=== PATIENT | female | born 1995 | race Caucasian/White ===

== ENCOUNTER 2018-05-08 08:49 | Emergency (ER) | payer OTHER ==
[2018-05-08 08:52] VITALS: BMI 30.2
[2018-05-08 08:56] VITALS: RESP 18
[2018-05-08] MEDS ORDERED: levoFLOXacin 750 MG TAB PO STA ×2 (08:57→09:36)
--- NOTE | 2018-05-08 09:24 | ED PDOC ---
Arrival/HPI - General Chief Complaint: ENT Problem Time Seen by Provider: 05/08/18 08:57 Historian: Patient - History of Present Illness Narrative History of Present Illness (Text): 05/08/18 09:00 22 year old female, whose past medical history includes pancreatitis, who presents to the Emergency department complaining of sore throat, cough, swollen glands, and fever since she came back from [place] yesterday. Patient states she has been in [place] for the past few days. Sick contact is her mother who is present in the emergency department today for the same symptoms. Patient denies any chest pain, shortness of breath, vomiting, diarrhea, urinary symptoms , back pain, neck pain, headache, dizziness, or any other complaints. PMD: Dr. Almonte Time/Duration: Other (patient notes sx since she got home back from [facility] yesterday) Symptom Onset: Sudden Symptom Course: Unchanged Activities at Onset: Light Context: Home Past Medical History - Provider Review Nursing Documentation Reviewed: Yes - Infectious Disease Hx of Infectious Diseases: None - Reproductive Menopause: No - Psychiatric Hx Substance Use: No - Anesthesia Hx Anesthesia: No Family/Social History - Physician Review Nursing Documentation Reviewed: Yes Family/Social History: No Known Family HX Smoking Status: Unknown If Ever Smoked Hx Alcohol Use: No Hx Substance Use: No Allergies/Home Meds Allergies/Adverse Reactions: Allergies No Known Allergies Allergy (Verified 05/08/18 08:53) Review of Systems - Physician Review All systems were reviewed & negative as marked: Yes - Review of Systems Constitutional: Fevers. absent: Normal Eyes: Normal ENT: Sore Throat, Other (swollen glands). absent: Normal Respiratory: Cough. absent: Normal, SOB Cardiovascular: Normal. absent: Chest Pain Gastrointestinal: Normal. absent: Diarrhea, Nausea, Vomiting Genitourinary Female: Normal Musculoskeletal: Normal. absent: Back Pain, Neck Pain Skin: Normal Neurological: Normal. absent: Headache, Dizziness Endocrine: Normal Hemo/Lymphatic: Normal Psychiatric: Normal Physical Exam Vital Signs Reviewed: Yes Vital Signs Temp Pulse Resp BP Pulse Ox 05/08/18 10:05 102 F H 92 H 18 119/76 98 05/08/18 08:55 103 F H 107 H 18 118/83 99 Temperature: Febrile Blood Pressure: Normal Pulse: Tachycardic Respiratory Rate: Normal Appearance: Positive for: Well-Appearing, Non-Toxic, Comfortable Pain Distress: None Mental Status: Positive for: Alert and Oriented X 3 - Systems Exam Head: Present: Atraumatic, Normocephalic Pupils: Present: PERRL Extroacular Muscles: Present: EOMI Conjunctiva: Present: Normal Mouth: Present: Moist Mucous Membranes Pharnyx: Present: ERYTHEMA (Some redness to posterior pharnyx), Muffled/Hoarse Voice, Other (harsh barky cough. tender cervical lymph nodes.). No: Normal, EXUDATE Neck: Present: Normal Range of Motion Respiratory/Chest: Present: Clear to Auscultation, Good Air Exchange. No: Respiratory Distress, Accessory Muscle Use Cardiovascular: Present: Regular Rate and Rhythm, Normal S1, S2. No: Murmurs Abdomen: No: Tenderness, Distention, Peritoneal Signs Back: Present: Normal Inspection Upper Extremity: Present: Normal Inspection. No: Cyanosis, Edema Lower Extremity: Present: Normal Inspection. No: Edema Neurological: Present: GCS=15, CN II-XII Intact, Speech Normal Skin: Present: Warm, Dry, Normal Color. No: Rashes Psychiatric: Present: Alert, Oriented x 3, Normal Insight, Normal Concentration Medical Decision Making ED Course and Treatment: 05/08/18 09:00 Impression: 22 year old female who presents to the emergency department for sore throat, cough, swollen glands, and fever since she came back from [place] yesterday. Differential Diagnosis included but are not limited to: Plan: -- Levaquin 750 mg PO -- Medrol 16 mg PO -- Tylenol 325 mg -- Clinical treatment and have her follow up with her PMD Progress Notes: - Medication Orders Current Medication Orders: Discontinued Medications Acetaminophen (Tylenol 325mg Tab) 975 mg PO STAT STA Stop: 05/08/18 09:12 Last Admin: 05/08/18 09:49 Dose: 975 mg MAR Pain/Vitals Document 05/08/18 09:49 ANN (Rec: 05/08/18 09:50 ANN [id number]) Pain Reassessment Is This A Pain ReAssessment? Yes Sleep Is patient sleeping during reassessment? No Presence of Pain Presence of Pain Yes Levofloxacin (Levaquin) 750 mg PO STAT STA PRN Reason: Protocol Stop: 05/08/18 09:37 Last Admin: 05/08/18 09:49 Dose: 750 mg Methylprednisolone (Medrol) 16 mg PO STAT STA Stop: 05/08/18 09:37 Last Admin: 05/08/18 09:50 Dose: 16 mg - Sallyibe Statement The provider has reviewed the documentation as recorded by the Sallyibnatalie Bustos All medical record entries made by the aSllyibnatalie were at my direction and personally dictated by me. I have reviewed the chart and agree that the record accurately reflects my personal performance of the history, physical exam, medical decision making, and the department course for this patient. I have also personally directed, reviewed, and agree with the discharge instructions and disposition. Disposition/Present on Arrival - Present on Arrival Any Indicators Present on Arrival: No History of DVT/PE: No History of Uncontrolled Diabetes: No Urinary Catheter: No History of Decub. Ulcer: No History Surgical Site Infection Following: None - Disposition Have Diagnosis and Disposition been Completed?: Yes Diagnosis: Bronchitis, Pharyngitis Disposition: HOME/ ROUTINE Disposition Time: 09:00 Patient Plan: Discharge Condition: GOOD Discharge Instructions (ExitCare): Acute Bronchitis, Adult (DC), Sore Throat, Adult (DC) Additional Instructions: Mallory- Rest, plenty of fluids, tylenol or motrin for fever, Medrol dose pack over five days, Levaquin is for a full ten days. Return to us if worse. Follow up with your doctor later this week. Theo- Dr. Sha De Leon Prescriptions: Levofloxacin [Levaquin] 750 mg PO DAILY #10 tablet Methylprednisolone [Medrol Dose Pack (21 tabs)] 4 mg PO DAILY #21 mg Referrals: Fela Almonte MD [Primary Care Provider] - Follow up with primary Forms: SCHOOL NOTE, WORK NOTE
[2018-05-08 10:38] VITALS: BP 119/76; PULSE 92; TEMP 102; O2SAT 98
== END 2018-05-08 15:04 | disposition home or self-care (01) ==
LOC: ED 08:49
DX: J02.9 Acute pharyngitis, unspecified (principal); J40 Bronchitis, not specified as acute or chronic
CPT/HCPCS: 99282; J7509